=== PATIENT | female | born 1965 ===

== ENCOUNTER 2021-06-29 06:10 | Day surgery (SDC) | payer OTHER ==
[~2021-06-29 06:10] MED LIST: CLIMARA1 EAC1; COZAAR100 MG; HYDROCHLORIC AC25 ML; LEVOTHYROXINE
== END 2021-06-29 15:30 | disposition home or self-care (01) ==
LOC: CIR.AMB 06:10
PROVIDERS: ATTEND Specialist
DX: N85.01 Benign endometrial hyperplasia (principal)